=== PATIENT | female | born 1970 | race Caucasian/White ===

== ENCOUNTER 2021-02-17 15:47 | Emergency (ER) | payer OTHER ==
[2021-02-17] MEDS ORDERED: NORCO 5-325 TA1 EACH PO ×2 (21:07)
== END 2021-02-17 21:41 | disposition home or self-care (01) ==
LOC: FER 15:47
DX: K64.4 Residual hemorrhoidal skin tags (principal); J45.909 Unspecified asthma, uncomplicated
CPT/HCPCS: 99282

== ENCOUNTER → 2021-11-10 | Day surgery (SDC) | payer OTHER ==
[~2021-11-10] VITALS: Ht 162.6 cm; Wt 63.0 kg
[~2021-11-10] MED LIST: ATORVASTATIN CA10 MG PO; CENTRUM ADULTS1 EACH PO; DESVENLAFAXINE50 M3 PO; FLAXSEED1000 MG PO; LEVOTHYROXINE50 MCG PO; LORAZEPAM 0.5M0.5 MG PO; NEXIUM40 MG PO; NORCO 5-325 TA1 EACH PO
== END | disposition home or self-care (01) ==
LOC: FAS 08:09
DX: Z12.11 Encounter for screening for malignant neoplasm of colon (principal); K29.50 Unspecified chronic gastritis without bleeding; B96.81 Helicobacter pylori [H. pylori] as the cause of diseases classified elsewhere; D12.2 Benign neoplasm of ascending colon; D12.4 Benign neoplasm of descending colon; K21.9 Gastro-esophageal reflux disease without esophagitis; K64.9 Unspecified hemorrhoids; K44.9 Diaphragmatic hernia without obstruction or gangrene; K64.0 First degree hemorrhoids; J45.909 Unspecified asthma, uncomplicated; E78.5 Hyperlipidemia, unspecified; E03.9 Hypothyroidism, unspecified; Z80.0 Family history of malignant neoplasm of digestive organs
CPT/HCPCS: J0694; J1885; J2250; J2405; J2704; J3010; J7120